=== PATIENT | male | born 1970 | race Hispanic/Latino ===

== ENCOUNTER 2024-01-03 09:43 | Emergency (ER) | payer SELFPAY ==
[2024-01-03] VITALS (17 sets, daily range): BP systolic 151–239; BP diastolic 81–122
[~2024-01-03] VITALS: Ht 165.1 cm; Wt 74.8 kg
[2024-01-03] MEDS ORDERED: SODIUM CHLORIDE 0.9% 1,000 ML IV ONE (11:15)
[2024-01-03 11:45] LABS: BASO% 1.9 % (0-3); EOS% 1.9 % (0-8); HEMATOCRIT 23.8 % (39.0-50.0); HEMOGLOBIN 7.4 g/dl (14.0-18.0); IMMATURE GRANULOCYTES 0.2 % (0.0-5.0); MEAN CELL VOLUME 96.4 fL CALC (80.0-100.0); MEAN CORPUSCULAR HGB CONC 31.1 g/dL CAL (32.0-36.0); MONO% 4.9 % (2-13); NEUT# 6.18 thou/uL (1.82-7.42); NEUT% 77.1 % (42-76); RED BLOOD COUNT 2.47 mill/uL (4.70-6.10); RED CELL DISTRI WIDTH 13.6 % (11.5-15.5)
[2024-01-03 12:59] LABS: ALBUMIN 2.9 g/dL (3.2-5.0); BILIRUBIN, TOTAL 0.6 mg/dL (0.2-1.3)
[2024-01-03 13:06] LABS: CREATININE 21.2 mg/dL (0.7-1.3)
[2024-01-03 13:07] LABS: POTASSIUM 7.2 mmol/l (3.5-5.1)
[2024-01-03] MEDS ORDERED: DEXTROSE 50% 50 ML/SYR IV ONE (13:15)
[2024-01-03] MEDS ORDERED: SODIUM BICARBONATE 8.4% 50 ML/SYR IV ONE (13:15)
[2024-01-03] MEDS ORDERED: INSULIN REGULAR (HUMAN) 100 UNIT/ML INJ SC ONE (13:15)
[2024-01-03] MEDS ORDERED: CALCIUM GLUCONATE 1 GM in SODIUM CHLORIDE 0.9% 50 ML IV ONE (13:15)
[2024-01-03] MEDS ORDERED: LABETALOL HCL 20 MG/ 4 ML CARTRG IV ONE (13:25)
[2024-01-03] MEDS ORDERED: hydrALAZINE HCL 20 MG/ML VIAL(1 ML) IV ONE (13:25)
[2024-01-03] MEDS ORDERED: DEXTROSE 10% 500 ML BAG IV ONE (13:35)
[2024-01-03 13:39] LABS: URINE BILIRUBIN - DIPSTICK Negative (NEGATIVE); URINE BLOOD DIPSTICK Moderate (NEGATIVE); URINE GLUCOSE - DIPSTICK 100 mg/dL (NEGATIVE); URINE KETONE Negative (NEGATIVE); URINE LEUK ESTERASE Negative (NEGATIVE); URINE NITRITE - DIPSTICK Negative (Negative); URINE PROTEIN - DIPSTICK >=300 mg/dL (NEG-TRACE); URINE UROBILINOGEN - DIPSTICK 0.2 E.U./dL (0.2)
[2024-01-03 13:44] LABS: URINE COLOR Yellow
[2024-01-03 13:52] LABS: URINE RBC 0-2 RBC/hpf (0-5)
== END 2024-01-03 15:09 | disposition short-term general hospital (02) | DRG 682 ==
LOC: ED 09:43
PROVIDERS: Emergency Medicine
DX: I12.0 Hypertensive chronic kidney disease with stage 5 chronic kidney disease or end stage renal disease (principal); N18.6 End stage renal disease; E87.5 Hyperkalemia